=== PATIENT | female | born 1995 | race African-American/Black ===

== ENCOUNTER 2018-02-10 01:20 | Emergency (ER) | payer SELFPAY ==
[~2018-02-10] VITALS: Ht 160 cm; Wt 67.1 kg
[2018-02-10 01:46] VITALS: BP 105/71
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
[2018-02-10] MEDS ORDERED: IBUPROFEN600 MG ORAL (02:38)
[2018-02-10 02:43] VITALS: BP 105/71
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
== END 2018-02-10 02:44 | disposition home or self-care (01) ==
LOC: EMR 02:01
DX: S00.83XA Contusion of other part of head, initial encounter (principal); V43.52XA Car driver injured in collision with other type car in traffic accident, initial encounter; Y92.410 Unspecified street and highway as the place of occurrence of the external cause
CPT/HCPCS: 70450; 99284